=== PATIENT | male | born 1975 | race Caucasian/White ===

== ENCOUNTER 2021-01-18 12:56 | Emergency (ER) | payer OTHER ==
[2021-01-18] MEDS ORDERED: Lidocaine 1% 30 ML SDV INJECT ONE (13:08)
[2021-01-18 14:37] VITALS: BP 141/82; PULSE 88
--- NOTE | 2021-02-10 09:40 | EDM.PDOC ---
ED HPI GENERAL MEDICAL PROBLEM - General Chief Complaint: Laceration Stated Complaint: CUT ON RT WRIST Time Seen by Provider: 01/18/21 13:10 Source of Information: Reports: Patient History Limitations: Reports: No Limitations - History of Present Illness INITIAL COMMENTS - FREE TEXT/NARRATIVE: Pt. sustained a laceration to his L palm while handling some sheet metal at work. His tetanus is up to date. Denied any numbness/tingling distal to area of injury. Denied injury elsewhere. Onset: Today Onset Date: 01/18/21 Location: Reports: Upper Extremity, Left Quality: Reports: Sharp, Stabbing Severity: Mild - Related Data Allergies Allergy/AdvReac Type Severity Reaction Status Date / Time No Known Allergies Allergy Verified 01/18/21 13:58 Home Meds: Home Meds Ibuprofen [Motrin] 600 mg PO TID 11/03/14 [History] Past Medical History - Past Health History Medical/Surgical History: Denies Medical/Surgical History - Infectious Disease History Infectious Disease History: Reports: None Social & Family History - Tobacco Use Tobacco Use Status *Q: Heavy Tobacco User Years of Tobacco use: 30 Packs/Tins Daily: 1 - Recreational Drug Use Recreational Drug Use: No ED ROS GENERAL - Review of Systems Review Of Systems: Comprehensive ROS is negative, except as noted in HPI. ED EXAM, GENERAL - Physical Exam Exam: See Below Exam Limited By: No Limitations General Appearance: Alert, WD/WN, No Apparent Distress Extremities: Normal Range of Motion, Normal Capillary Refill, Other (3 cm laceration to palm of L hand.) Neurological: Alert, Oriented, CN II-XII Intact, Normal Cognition, Normal Gait, Normal Reflexes, No Motor/Sensory Deficits Skin Exam: Warm, Dry, Intact, Normal Color, No Rash ED GENERAL MEDICAL PROCEDURES - Laceration/Wound Repair Left Dorsal Hand Lac/wound length in cm: 3 Appearance: Subcutaneous, Mildly Contaminated Distal NVT: Neuro & Vascular Intact, No Tendon Injury Anesthetic Type: Local Local Anesthesia - Lidocaine (Xylocaine): 1% Plain Local Anesthetic Volume: 3cc Skin Prep: Chlorhexidine (Hibiciens), Saline Exploration/Debridement/Repair: Wound Explored, Explored to Base, Minimal Debridement Closed with: Sutures Suture Size: 4-0 Suture Type: Nylon Course - Vital Signs Last Recorded V/S: Last Vital Signs Temp 37.6 C 01/18/21 13:05 Pulse 88 01/18/21 13:05 Resp 16 01/18/21 13:05 BP 141/82 H 01/18/21 13:05 Pulse Ox 96 01/18/21 13:05 - Orders/Labs/Meds Meds: Medications Discontinued Medications Generic Name Dose Route Start Last Admin Trade Name Camilo PRN Reason Stop Dose Admin Lidocaine HCl 30 ml 01/18/21 13:08 01/18/21 13:15 Lidocaine 1% 30 Ml Sdv INJECT 01/18/21 13:09 30 ml ONETIME ONE Administration Departure - Departure Time of Disposition: 14:05 Disposition: Home, Self-Care 01 Clinical Impression: Laceration - Discharge Information Instructions: Laceration Care, Adult Referrals: PCP,None [Primary Care Provider] - Forms: ED Department Discharge Additional Instructions: Home to rest. Off work today. No lifting more than 5 pounds/grasping with R hand for 10 days Sutures can be removed in clinic in 10-12 days Return to ER if you notice any redness, swelling, or discharge from the laceration area. Sepsis Event Note (ED) - Evaluation Sepsis Screening Result: No Definite Risk - Problem List Review Problem List Initiated/Reviewed/Updated: Yes - Assessment/Plan Plan: Home to rest. Off work today. No lifting more than 5 pounds/grasping with R hand for 10 days Sutures can be removed in clinic in 10-12 days Return to ER if you notice any redness, swelling, or discharge from the laceration area.
== END 2021-01-18 13:55 | disposition home or self-care (01) ==
LOC: VM.ED 12:56
DX: S61.412A Laceration without foreign body of left hand, initial encounter (principal); Z72.0 Tobacco use; W26.8XXA Contact with other sharp object(s), not elsewhere classified, initial encounter; Y99.0 Civilian activity done for income or pay
CPT/HCPCS: 12002; 12013; 99282-25; 99283